=== PATIENT | female | born 1960 ===

== ENCOUNTER 2023-08-24 05:26 | Day surgery (SDC) | payer OTHER ==
[2023-08-24] MEDS ORDERED: DIPHENHYDRAMINE HCL 50 MG/ML VIAL 1ML IV ONE (09:45)
[2023-08-24] MEDS ORDERED: MIDAZOLAM HCL 2 MG/2 ML VIAL IV ONE (09:45)
[2023-08-24] MEDS ORDERED: fentaNYL CITRATE 50 MCG/ML AMPUL IV ONE (09:45)
== END 2023-08-24 11:05 | disposition home or self-care (01) ==
LOC: AMB-ENDOS 05:26
PROVIDERS: ATTEND Surgery
DX: K63.5 Polyp of colon (principal); K57.30 Diverticulosis of large intestine without perforation or abscess without bleeding